=== PATIENT | male | born 1960 | race Caucasian/White ===

== ENCOUNTER 2024-12-30 14:21 | Outpatient (REF) | payer OTHER, SELFPAY ==
[2024-12-30 15:18] LABS: Glucose Urine UA NEGATIVE (NEGATIVE)
== END 2024-12-30 14:22 | disposition home or self-care (01) ==
LOC: LAB 14:21
PROVIDERS: PCP Family Medicine; Visit Provider Family Medicine
DX: R30.0 Dysuria (principal); R31.9 Hematuria, unspecified
CPT/HCPCS: 81003